=== PATIENT | female | born 1950 | race Caucasian/White ===

== ENCOUNTER 2017-01-25 13:37 | Inpatient (IN) | payer MEDICARE, OTHER ==
[2017-01-25] MEDS ORDERED: ACETAMINOPHEN 325 MG TABLET PO ONE (13:44)
--- NOTE | 2017-01-25 14:08 | ER Document Report ---
ED Respiratory Problem - General Chief Complaint: Shortness Of Breath Stated Complaint: DIFFICULTY BREATHING Time Seen by Provider: 01/25/17 14:05 Notes: The patient is a 66-year-old female, past medical history CHF, HTN, presents with several days of increasing shortness of breath and dyspnea on exertion with a fever that started 2 days ago. Her primary care physician started her on azithromycin and Tessalon Perles, but she feels that her work of breathing is worsening. She saw her primary care physician, Dr. Peña, and was sent to the emergency room for further evaluation, treatment and admission due to a pneumonia seen on a chest x-ray as an outpatient. Patient denies chest pain, leg swelling, hemoptysis, rash, back pain, nausea, vomiting or abdominal pain. TRAVEL OUTSIDE OF THE [place] IN LAST 30 DAYS: No - Related Data Allergies/Adverse Reactions: codeine Allergy (Verified 01/25/17 13:44) Past Medical History - General Information source: Patient - Social History Smoking Status: Former Smoker Family History: Reviewed & Not Pertinent Renal/ Medical History: Denies: Hx Peritoneal Dialysis Review of Systems - Review of Systems Notes: REVIEW OF SYSTEMS: CONSTITUTIONAL: +fevers, -chills EENT: -eye pain, -difficulty swallowing, -nasal congestion CARDIOVASCULAR:-chest pain, -syncope. RESPIRATORY: +cough, +SOB GASTROINTESTINAL: -abdominal pain, - nausea, -vomiting, -diarrhea GENITOURINARY: -dysuria, -hematuria MUSCULOSKELETAL: -back pain, -neck pain SKIN: -rash or skin lesions. HEMATOLOGIC: -easy bruising or bleeding. LYMPHATIC: -swollen, enlarged glands. NEUROLOGICAL: -altered mental status or loss of consciousness, -headache, - neurologic symptoms PSYCHIATRIC: -anxiety, -depression. ALL OTHER SYSTEMS REVIEWED AND NEGATIVE. Physical Exam - Vital signs Vitals: Temp Pulse Resp BP Pulse Ox 101.7 F H 89 24 H 132/55 H 92 01/25/17 13:42 01/25/17 13:42 01/25/17 13:42 01/25/17 13:42 01/25/17 13:42 - Notes Notes: PHYSICAL EXAMINATION: GENERAL: Ill-appearing. HEAD: Atraumatic, normocephalic. EYES: Pupils equal round and reactive to light, extraocular movements intact, sclera anicteric, conjunctiva are normal. ENT: nares patent, oropharynx clear without exudates. Moist mucous membranes. NECK: Normal range of motion, supple without lymphadenopathy LUNGS: Mild tachypnea. Crackles in RLL. Mild end-expiratory wheezing. HEART: Regular rhythm. ABDOMEN: Soft, nontender, normoactive bowel sounds. No guarding, no rebound. No masses appreciated. EXTREMITIES: Normal range of motion, no pitting or edema. No cyanosis. NEUROLOGICAL: Cranial nerves grossly intact. Normal speech, normal gait. Normal sensory and motor exams. PSYCH: Normal mood, normal affect. SKIN: Warm, Dry, normal turgor, no rashes or lesions noted. Course - Re-evaluation Re-evalutation: Patient with fevers, tachypnea, mild hypoxia to 88% on RA and crackles on exam, pt clinically has pneumonia. She failed outpatient antibiotics with azithromycin. She does not appear to be fluid overloaded at this time. Broad- spectrum antibiotics started and patient requires inpatient admission for further evaluation and treatment. 01/25/17 15:32 Spoke to Clarice Gutiérrez (Hospitalist [employer]) and she has accepted patient for Inpatient admission to [facility]. - Vital Signs Vital signs: Temp Pulse Resp BP Pulse Ox 101.7 F H 89 24 H 132/55 H 92 01/25/17 13:42 01/25/17 13:42 01/25/17 13:42 01/25/17 13:42 01/25/17 13:42 - Laboratory Result Diagrams: 01/25/17 14:23 01/25/17 14:23 Laboratory results interpreted by me: 01/25/17 01/25/17 14:23 14:23 WBC 12.5 H Seg Neutrophils % 78.4 H Lymphocytes % 8.4 L Absolute Neutrophils 9.8 H Absolute Monocytes 1.6 H Sodium 136.2 L Glucose 114 H Total Bilirubin 2.5 H Direct Bilirubin 0.9 H AST 39 H Alkaline Phosphatase 135 H Creatine Kinase 377 H - Diagnostic Test Radiology reviewed: Image reviewed, Reports reviewed Radiology results interpreted by me: CXR: NAD - EKG Interpretation by Me EKG shows normal: Sinus rhythm, [place], Intervals, QRS Complexes, ST-T Waves Rate: Normal Discharge - Discharge Clinical Impression: Pneumonia Qualifiers: Pneumonia type: due to unspecified organism Laterality: right Lung location: lower lobe of lung Qualified Code(s): J18.1 - Lobar pneumonia, unspecified organism Condition: Stable Disposition: ADMITTED INPATIENT Admitting Provider: [facility] Unit Admitted: Telemetry Referrals: LUCILA PEÑA MD [Primary Care Provider] - Follow up as needed
[2017-01-25] MEDS ORDERED: PIPERACILLIN/TAZOBACTAM 3.375 GM VIAL IV ONE (14:22)
[2017-01-25] MEDS ORDERED: VANCOMYCIN HCL INJ 1000 MG VIAL IV ONE (14:22)
--- NOTE | 2017-01-25 14:46 | RADIOLOGY REPORT (SQ) ---
EXAM DESCRIPTION: CHEST SINGLE VIEW COMPLETED DATE/TIME: 01/25/2017 2:37 pm REASON FOR STUDY: SOB, hypoxia COMPARISON: None. EXAM PARAMETERS: NUMBER OF VIEWS: One view. TECHNIQUE: Single frontal radiographic view of the chest acquired. RADIATION DOSE: NA LIMITATIONS: None. FINDINGS: LUNGS AND PLEURA: No opacities, masses or pneumothorax. No pleural effusion. MEDIASTINUM AND HILAR STRUCTURES: No masses. Contour normal. HEART AND VASCULAR STRUCTURES: Heart normal in size. Normal vasculature. BONES: No acute findings. HARDWARE: None in the chest. OTHER: No other significant finding. IMPRESSION: NO ACUTE RADIOGRAPHIC FINDING IN THE CHEST. TECHNICAL DOCUMENTATION: JOB ID: [id number]
[2017-01-25 14:55] LABS: ABSOLUTE LYMPHOCYTES (AUTO) 1.1 10^3/uL (0.5-4.7); ABSOLUTE MONOCYTES (AUTO) 1.6 10^3/uL (0.1-1.4); ABSOLUTE NEUT (AUTO) 9.8 10^3/uL (1.7-8.2); BASOPHILS % (AUTO) 0.3 % (0-2); EOSINOPHILS % (AUTO) 0.1 % (0-6); HEMATOCRIT 39.9 % (36.0-47.0); HEMOGLOBIN 13.7 g/dL (12.0-15.5); HGB HCT DIFFERENCE 1.2; LYMPHOCYTES % (AUTO) 8.4 % (13-45); MEAN CORPUSCULAR HEMOGLOBIN 31.4 pg (27.0-33.4); MEAN CORPUSCULAR HGB CONC 34.4 g/dL (32.0-36.0); MEAN CORPUSCULAR VOLUME 91 fl (80-97); MONOCYTES % (AUTO) 12.8 % (3-13); RED BLOOD COUNT 4.38 10^6/uL (3.72-5.28); RED CELL DISTRIBUTION WIDTH 13.4 % (11.5-14.0); SEGMENTED NEUTROPHILS % (AUTO) 78.4 % (42-78); WHITE BLOOD COUNT 12.5 10^3/uL (4.0-10.5)
[2017-01-25 15:19] LABS: ALANINE AMINOTRANSFERASE 52 U/L (9-52); ALBUMIN 3.7 g/dL (3.5-5.0); ALKALINE PHOSPHATASE 135 U/L (38-126); ANION GAP 13 (5-19); ASPARTATE AMINO TRANSFERASE 39 U/L (14-36); BILIRUBIN,DIRECT 0.9 mg/dL (0.0-0.4); BILIRUBIN,TOTAL 2.5 mg/dL (0.2-1.3); BLOOD UREA NITROGEN 12 mg/dL (7-20); CALCIUM 8.8 mg/dL (8.4-10.2); CARBON DIOXIDE 23 mmol/L (22-30); CHLORIDE 100 mmol/L (98-107); CREATINE KINASE 377 U/L (30-135); GLUCOSE 114 mg/dL (75-110); POTASSIUM 3.8 mmol/L (3.6-5.0); SODIUM 136.2 mmol/L (137-145); TOTAL PROTEIN 6.7 g/dL (6.3-8.2)
[2017-01-25] MEDS ORDERED: IPRATROPIUM/ALBUTEROL 0.5-2.5 MG/3 ML AMPUL NEB ONE ×2 (15:30→17:00)
[2017-01-25 15:31] LABS: TROPONIN I < 0.012 ng/mL
[2017-01-25 15:51] LABS: APPEARANCE,URINE SLIGHTLY-CLOUDY; BILIRUBIN,URINE NEGATIVE (NEGATIVE); GLUCOSE, URINE NEGATIVE (NEGATIVE); KETONES,URINE NEGATIVE (NEGATIVE); LEUKOCYTE ESTERASE,URINE LARGE (NEGATIVE); NITRITE,URINE NEGATIVE (NEGATIVE); PROTEIN,URINE 30 mg/dL (NEGATIVE); URINE SPECIFIC GRAVITY 1.023
[2017-01-25] MEDS ORDERED: ACETAMINOPHEN 325 MG TABLET PO PRN (16:11)
[2017-01-25 16:22] LABS: VENOUS BLOOD HCO3 25.7 mmol/L (20-32); VENOUS BLOOD PCO2 37.7 mmHg (35-63); VENOUS BLOOD PH 7.45 (7.30-7.42)
--- NOTE | 2017-01-25 16:35 | PDOC H&P ---
History of Present Illness Admission Date/PCP: 01/25/17 15:52 LUCILA PEÑA MD Patient complains of: Worsening shortness of breath History of Present Illness: DIONNE PICKETT is a 66 year old female with a past medical history consistent significant for hypothyroidism and mild hyperlipidemia. The patient recently had been traveling on a bus tour in [place]. She stated that everybody on the bus caught an upper respiratory illness. When she came back she saw her primary care provider who placed her on p.o. Zithromax. In spite of this she had worsening shortness of breath and worsening fever and presented to the emergency room for further evaluation and treatment. Today she states she just cannot catch her breath. She has had fever and shaking chills. She states that she has a very bad headache. She states her chest hurts from the frequent coughing and she is coughing up quite a bit of sputum. She reports that recently she has been having dyspnea on exertion and when she was trying to walk in [place] she would get quite short of breath and winded. She also has had worsening lower extremity swelling. She states that she has had no nausea vomiting or diarrhea. No change in bowel habits. No abdominal pain. No dysuria, frequency or hematuria. When I went to see the patient today she was having an episode of bronchospasm and her oxygen saturations in spite of being on 2 L was in the mid 80s. Once the patient was able to quit coughing her oxygen saturation stabilized to the low 90s. Past Medical History Cardiac Medical History: Reports: None Pulmonary Medical History: Reports: None Denies: Asthma, Chronic Obstructive Pulmonary Disease (COPD), Pneumonia EENT Medical History: Reports: None Neurological Medical History: Reports: None Endocrine Medical History: Reports: Hypothyroidism Denies: Diabetes Mellitus Type 2 Renal/ Medical History: Reports: None Denies: Chronic Kidney Disease Malignancy Medical History: Reports: None GI Medical History: Reports: None Denies: Gastroesophageal Reflux Disease Musculoskeltal Medical History: Reports: Arthritis Skin Medical History: Reports: None Psychiatric Medical History: Reports: None Traumatic Medical History: Reports: None Hematology: Reports: None Infectious Medical History: Reports: None Past Surgical History Past Surgical History: Reports: Section - x3, Cholecystectomy, Hysterectomy, Other - deviated septum, foot surgery, knee surgery Social History Information Source: Patient Lives with: Spouse/Significant other Smoking Status: Never Smoker Frequency of Alcohol Use: Rare Hx Recreational Drug Use: No Hx Prescription Drug Abuse: No - Advance Directive Surrogate healthcare decision maker:: Family History Family History: DM, Malignancy Parental Family History Reviewed: Yes Children Family History Reviewed: No Sibling(s) Family History Reviewed.: No Medication/Allergy Home Medications: Atorvastatin Calcium [Lipitor 10 mg Tablet] 10 mg PO QHS 01/25/17 Levothyroxine Sodium [Synthroid 0.088 mg Tablet] 0.088 mg PO DAILY 01/25/17 Allergies/Adverse Reactions: codeine Allergy (Verified 01/25/17 13:44) Review of Systems Constitutional: PRESENT: chills, fatigue, fever(s), headache(s) Eyes: ABSENT: visual disturbances Ears: ABSENT: hearing changes Nose, Mouth, and Throat: PRESENT: headache(s). ABSENT: mouth pain, sore throat Cardiovascular: PRESENT: dyspnea on exertion, edema. ABSENT: chest pain, palpitations Respiratory: PRESENT: cough, dyspnea, sputum Gastrointestinal: ABSENT: abdominal pain, constipation, diarrhea, dysphagia, heartburn, hematemesis, hematochezia, nausea, vomiting Integumentary: ABSENT: diaphoresis, pruritus, rash Neurological: PRESENT: weakness. ABSENT: abnormal speech, confusion, dizziness , frequent falls, lack of coordination, syncope Psychiatric: ABSENT: anxiety, depression, homidical ideation, suicidal ideation Endocrine: ABSENT: cold intolerance, flushing, heat intolerance, polyphagia, polyuria Hematologic/Lymphatic: ABSENT: easy bleeding, easy bruising Physical Exam Vital Signs: Temp Pulse Resp BP Pulse Ox 101.7 F H 89 24 H 132/55 H 92 01/25/17 13:42 01/25/17 13:42 01/25/17 13:42 01/25/17 13:42 01/25/17 13:42 General appearance: PRESENT: mild distress, morbidly obese, well-developed, well -nourished Head exam: PRESENT: atraumatic, normocephalic Eye exam: PRESENT: conjunctiva pink, EOMI, PERRLA. ABSENT: scleral icterus Ear exam: PRESENT: normal external ear exam Mouth exam: PRESENT: moist, tongue midline Throat exam: PRESENT: post pharyngeal erythema Neck exam: ABSENT: carotid bruit, JVD, lymphadenopathy, thyromegaly Respiratory exam: PRESENT: accessory muscle use, chest wall tenderness, crackles , rhonchi, tachypnea, wheezes Cardiovascular exam: PRESENT: RRR, +S1, +S2. ABSENT: diastolic murmur, gallop, rubs, systolic murmur Pulses: PRESENT: normal dorsalis pedis pul Vascular exam: PRESENT: normal capillary refill GI/Abdominal exam: PRESENT: normal bowel sounds, soft. ABSENT: distended, guarding, mass, organolmegaly, rebound, tenderness Rectal exam: PRESENT: deferred Extremities exam: PRESENT: +1 edema. ABSENT: calf tenderness, clubbing, tenderness Musculoskeletal exam: PRESENT: ambulatory Neurological exam: PRESENT: alert, altered, awake, oriented to person, oriented to place, oriented to time, oriented to situation, CN II-XII grossly intact Psychiatric exam: PRESENT: appropriate affect, normal mood. ABSENT: homicidal ideation, suicidal ideation Skin exam: PRESENT: dry, intact, warm. ABSENT: cyanosis, rash Results Impressions: Chest X-Ray 01/25/17 14:17 IMPRESSION: NO ACUTE RADIOGRAPHIC FINDING IN THE CHEST. Assessment & Plan - Diagnosis (1) Acute respiratory failure with hypoxia Plan: Secondary to probable pneumonia. I cannot rule out an element of vascular congestion as well. Patient will continue oxygen support as needed to titrate her oxygen saturations to be above 90%. She will continue aggressive breathing treatments and therapy as outlined below. I am also going to get the patient an incentive spirometer. (2) Sepsis Plan: Secondary to pneumonia manifested by very high fever, tachypnea, leukocytosis and evidence of infection. Treatment as outlined below. (3) Pneumonia Qualifiers: Pneumonia type: due to unspecified organism Laterality: right Lung location: lower lobe of lung Qualified Code(s): J18.1 - Lobar pneumonia, unspecified organism Plan: Concerns for community-acquired pathogen such as gram positives and atypicals. Patient will be started on IV Levaquin. This will be the first day of treatment. Sputum culture is pending and we will await final results to direct therapy. I will obtain a legionella urine antigen as the patient has recently been out of the country. Patient will be given an incentive spirometer and will receive aggressive breathing treatments. She also has some wheezing on exam and I will start the patient on some Solu-Medrol. (4) Hypothyroidism Plan: Continue home dose of Synthroid. (5) Hyperlipidemia Plan: She will be started on her home dose of Lipitor. (6) Hyponatremia Plan: This is quite mild. She will have a CBC drawn in the morning. (7) Elevated brain natriuretic peptide (BNP) level Plan: The patient states that she has been having increased dyspnea on exertion and swelling in her lower extremities. Her BNP is elevated. Will obtain a 2D echocardiogram for further evaluation. - Time Time Spent: 50 to 70 Minutes - Inpatient Certification Medical Necessity: Failure to Improve With Outpatient Therapy, Need Close Monitoring Due to Risk of Patient Decompensation, Need for IV Antibiotics - Inpatient hospitalization remains necessary. This patient has a septic picture with probable pneumonia and a high fever. She is requiring parenteral therapies. I expect her to spend greater than 2 midnights in the hospital.
--- NOTE | 2017-01-25 16:56 | RADIOLOGY REPORT (SQ) ---
EXAM DESCRIPTION: CT CHEST WITH COMPLETED DATE/TIME: 01/25/2017 4:43 pm REASON FOR STUDY: rule out pneumonia COMPARISON: None. TECHNIQUE: CT scan of the chest performed using helical scanning technique with dynamic intravenous contrast injection. Images reviewed with lung, soft tissue and bone windows. Reconstructed coronal and sagittal MPR images reviewed. All images stored on PACS. All CT scanners at this facility use dose modulation, iterative reconstruction, and/or weight based d osing when appropriate to reduce radiation dose to as low as reasonably achievable (ALARA). [facility]: Dose Right [facility]: CareDose [facility]: Dose Right [facility]: Teradose 4D [facility]: Vioozer CONTRAST TYPE AND DOSE: contrast/concentration: Isovue 370.00 mg/ml; Total Contrast Delivered: 80.0 ml; Total Saline Delivered: 55.0 ml RENAL FUNCTION: BUN 12 creatinine 0.9. RADIATION DOSE: Up-to-date CT equipment and radiation dose reduction techniques were employed. CTDIv ol: 16.8 mGy. DLP: 638 mGy-cm. . LIMITATIONS: None. FINDINGS: LUNGS AND PLEURA: No opacities, nodules, masses. No pneumothorax. No effusions. HILAR AND MEDIASTINAL STRUCTURES: No identified masses or abnormal nodes. HEART AND VASCULAR STRUCTURES: No aneurysm or dissection. No central pulmonary emboli. No pericardi al effusion. HARDWARE: None in the chest. UPPER ABDOMEN: No significant findings. Limited exam. THYROID AND OTHER SOFT TISSUES: No masses. No adenopathy. BONES: No significant finding. OTHER: No other significant finding. IMPRESSION: NORMAL CT OF THE CHEST WITH IV CONTRAST. TECHNICAL DOCUMENTATION: JOB ID: [id number] Quality ID # [id number]: Final reports with documentation of one or more dose reduction techniques (e.g., Au tomated exposure control, adjustment of the mA and/or kV according to patient size, use of iterative reconstruction technique) 2010 [employer]- All Rights Reserved
[2017-01-25] MEDS ORDERED: METHYLPREDNISOLONE INJ 40 MG/1 ML SDV IV ONE (17:00)
[2017-01-25] MEDS: LEVOFLOXACIN 750 MG/D5W RTU 750 MG/150 ML RTUPB IV SCH (17:58)
[2017-01-25] MEDS ORDERED: ONDANSETRON HCL INJ/PF 4 MG/2 ML SDV IV PRN (19:51)
[2017-01-25] MEDS: IPRATROPIUM/ALBUTEROL 0.5-2.5 MG/3 ML AMPUL NEB SCH (20:04)
[2017-01-25] MEDS ORDERED: ONDANSETRON HCL INJ/PF 4 MG/2 ML SDV ONE (20:06)
[2017-01-25] MEDS: GUAIFENESIN 600 MG TABLET.SA PO SCH (22:05)
[2017-01-25] MEDS: ATORVASTATIN CALCIUM 10 MG TABLET PO SCH (22:06)
[2017-01-25] MEDS: METHYLPREDNISOLONE INJ 40 MG/1 ML SDV IV SCH (22:07)
[2017-01-26] MEDS: IPRATROPIUM/ALBUTEROL 0.5-2.5 MG/3 ML AMPUL NEB SCH ×4 (02:08→20:28)
--- NOTE | 2017-01-26 03:57 | EKG REPORT ---
SEVERITY:- NORMAL ECG - SINUS RHYTHM : Confirmed by: Shayna De La Fuente MD 26-Jan-2017 03:56:48
[2017-01-26] MEDS: METHYLPREDNISOLONE INJ 40 MG/1 ML SDV IV SCH ×3 (06:00→21:30)
[2017-01-26 06:34] LABS: ANION GAP 14 (5-19); BLOOD UREA NITROGEN 13 mg/dL (7-20); CALCIUM 9.1 mg/dL (8.4-10.2); CARBON DIOXIDE 23 mmol/L (22-30); CHLORIDE 102 mmol/L (98-107); CREATININE RESULT 0.87 mg/dL (0.52-1.25); GLUCOSE 226 mg/dL (75-110); POTASSIUM 3.6 mmol/L (3.6-5.0)
[2017-01-26 06:47] LABS: HEMATOCRIT 39.8 % (36.0-47.0); HEMOGLOBIN 13.7 g/dL (12.0-15.5); HGB HCT DIFFERENCE 1.3; MEAN CORPUSCULAR VOLUME 92 fl (80-97); RED BLOOD COUNT 4.33 10^6/uL (3.72-5.28); WHITE BLOOD COUNT 10.9 10^3/uL (4.0-10.5)
[2017-01-26 06:48] LABS: MEAN CORPUSCULAR HEMOGLOBIN 31.7 pg (27.0-33.4); MEAN CORPUSCULAR HGB CONC 34.5 g/dL (32.0-36.0); RED CELL DISTRIBUTION WIDTH 13.6 % (11.5-14.0)
[2017-01-26 07:34] LABS: BAND NEUTROPHILS % (MANUAL) 1 % (3-5); BASOPHILS % (MANUAL) 0 % (0-2); EOSINOPHILS % (MANUAL) 0 % (0-6); LYMPHOCYTES % (MANUAL) 4 % (13-45); TOTAL CELLS COUNTED 100
[2017-01-26 07:36] LABS: POLYCHROMASIA SLIGHT; TOXIC GRANULATION 1+
[2017-01-26 08:11] LABS: ALANINE AMINOTRANSFERASE 51 U/L (9-52); ALBUMIN 3.6 g/dL (3.5-5.0); ALKALINE PHOSPHATASE 128 U/L (38-126); ASPARTATE AMINO TRANSFERASE 41 U/L (14-36); BILIRUBIN,DIRECT 0.6 mg/dL (0.0-0.4); BILIRUBIN,TOTAL 1.3 mg/dL (0.2-1.3); TOTAL PROTEIN 6.8 g/dL (6.3-8.2)
--- NOTE | 2017-01-26 09:21 | PDOC PROGRESS REPORT ---
Subjective Progress Note for:: 01/26/17 Subjective:: The patient is a 66-year-old female with an unremarkable past medical history significant for hypothyroidism and mild hyperlipidemia. The patient recently had been traveling on a bus to her in [place]. She stated that everybody on the bus caught some sort of upper respiratory illness and actually one patient was hospitalized. When she came back to the [facility] she saw her primary care physician who obtained a chest x-ray concerning for a right lower lobe pneumonia. He placed her on p.o. Zithromax. In spite of that she had worsening shortness of breath and worsening fever. She presented to the emergency room for further evaluation and treatment. In the emergency room she was found to be somewhat hypoxic and was having significant cough with bronchospasm. She had evidence of early sepsis with a markedly high fever, tachypnea, leukocytosis and probable pneumonia. She also had a mildly elevated BNP. A chest x-ray in the emergency room was unremarkable. She was admitted to the hospital and started on IV Levaquin. Today when I saw the patient she states that she is feeling a little bit better than she was yesterday. She still bringing up quite a bit of sputum. She continues to have cough with bronchospasm and wheezing. She had a CT scan of the chest which did not reveal an infiltrate. She is scheduled to have an echocardiogram performed today. On exam yesterday she clearly had crackles in the right lower base. She states she has purulent sinus drainage as well. She states that her chest is hurting from the frequent coughing and it hurts to take a deep breath. She has had no nausea or vomiting. She has not had a bowel movement yet today. No abdominal pain. No dysuria, frequency or hematuria. Physical Exam Vital Signs: Temp Pulse Resp BP Pulse Ox 98.5 F 73 16 126/76 H 93 01/26/17 08:42 01/26/17 08:42 01/26/17 08:42 01/26/17 08:42 01/26/17 08:42 Pulse Oximeter Continuous Start: 01/25/17 16: 11 Freq: RTQ4 Status: Active Document 01/26/17 08:04 JOY (Rec: 01/26/17 08:06 [email or web address] [email or web address]) Pulse Oximetry Assessment Oxygen Saturation (92-100) 94 Oxygen Flow Rate (L/min) 2 Oxygen Delivery Method Nasal Cannula Equipment Usage Equipment in Use Continuous SpO2 Machine # 8 Intake & Output 01/25/17 01/26/17 01/27/17 06:59 06:59 06:59 Intake Total 530 Balance 530 Weight 113.8 kg General appearance: PRESENT: no acute distress, well-developed, well-nourished, other - She has frequent cough with bronchospasm Head exam: PRESENT: atraumatic, normocephalic Eye exam: PRESENT: conjunctiva pink, EOMI, PERRLA. ABSENT: scleral icterus Mouth exam: PRESENT: moist, tongue midline Respiratory exam: PRESENT: chest wall tenderness, rhonchi - The patient has coarse rhonchi and wheezing throughout all lung rodriguez. She does have some fine crackles in the right lower base., wheezes Cardiovascular exam: PRESENT: RRR. ABSENT: diastolic murmur, rubs, systolic murmur GI/Abdominal exam: PRESENT: normal bowel sounds, soft, tenderness - She has some tenderness across her upper abdomen which she attributes to frequent coughing.. ABSENT: distended, guarding, mass, organolmegaly, rebound Rectal exam: PRESENT: deferred Extremities exam: PRESENT: full ROM. ABSENT: calf tenderness, clubbing, pedal edema Musculoskeletal exam: PRESENT: ambulatory Psychiatric exam: PRESENT: appropriate affect, normal mood. ABSENT: homicidal ideation, suicidal ideation Skin exam: PRESENT: dry, intact, warm. ABSENT: cyanosis, rash Results Laboratory Results: 01/26/17 05:06 01/26/17 05:06 01/26/17 01/26/17 01/26/17 05:06 05:06 05:06 WBC 10.9 H RBC 4.33 Hgb 13.7 Hct 39.8 MCV 92 MCH 31.7 MCHC 34.5 RDW 13.6 Plt Count 203 Seg Neutrophils % Not Reportable Lymphocytes % Not Reportable Monocytes % Not Reportable Eosinophils % Not Reportable Basophils % Not Reportable Absolute Neutrophils Not Reportable Absolute Lymphocytes Not Reportable Absolute Monocytes Not Reportable Absolute Eosinophils Not Reportable Absolute Basophils Not Reportable Sodium 139.0 Potassium 3.6 Chloride 102 Carbon Dioxide 23 Anion Gap 14 BUN 13 Creatinine 0.87 Est GFR ( Amer) > 60 Est GFR (Non-Af Amer) > 60 Glucose 226 H Calcium 9.1 Total Bilirubin 1.3 AST 41 H ALT 51 Alkaline Phosphatase 128 H Total Protein 6.8 Albumin 3.6 01/26/17 05:06 NT-Pro-B Natriuret Pep 305 Impressions: Chest CT 01/25/17 00:00 IMPRESSION: NORMAL CT OF THE CHEST WITH IV CONTRAST. Chest X-Ray 01/25/17 14:17 IMPRESSION: NO ACUTE RADIOGRAPHIC FINDING IN THE CHEST. Assessment & Plan - Diagnosis (1) Acute respiratory failure with hypoxia Plan: Secondary to probable pneumonia. I cannot rule out an element of vascular congestion as well. Patient will continue oxygen support as needed to titrate her oxygen saturations to be above 90%. She will continue aggressive breathing treatments and therapy as outlined below. I am also going to get the patient an incentive spirometer. Currently her oxygen saturations are stable in the low 90s on 2 L. (2) Sepsis Plan: Secondary to pneumonia manifested by very high fever, tachypnea, leukocytosis and evidence of infection. Her sepsis was present at the time of admission. Her fever has resolved at this point and her leukocytosis is improving. Treatment as outlined below. (3) Pneumonia Qualifiers: Pneumonia type: due to unspecified organism Laterality: right Lung location: lower lobe of lung Qualified Code(s): J18.1 - Lobar pneumonia, unspecified organism Plan: Concerns for community-acquired pathogen such as gram positives and atypicals. The patient reportedly had a chest x-ray as an outpatient several days prior to admission revealing a right lower lobe infiltrate. Clinically on exam she had crackles in the right lower base yesterday. Chest x-ray and CT scan do not confirm a pneumonia. In any event she will continue IV Levaquin. This is day # 2 of treatment. Patient also is having wheezing and bronchospasm. She will continue IV Solu-Medrol as well. (4) Hypothyroidism Plan: Continue home dose of Synthroid. (5) Hyperlipidemia Plan: She will be started on her home dose of Lipitor. (6) Hyponatremia Plan: This was quite mild and likely due to dehydration. Her sodium level has now normalized. (7) Elevated brain natriuretic peptide (BNP) level Plan: The patient states that she has been having increased dyspnea on exertion and swelling in her lower extremities. Her BNP is elevated. She is scheduled to have a 2D echocardiogram performed today. (8) Elevated liver function tests Plan: Improving. This was likely secondary to sepsis. - Time Time Spent with patient: 15-24 minutes - Inpatient Certification Medical Necessity: Failure to Improve With Outpatient Therapy - Inpatient hospitalization remains necessary. The patient has acute respiratory failure requiring oxygen. She was not oxygen dependent prior to this hospitalization. She needs to be weaned off of oxygen and needs further treatment with parenteral therapies., Need for IV Antibiotics
[2017-01-26] MEDS: LEVOTHYROXINE SODIUM 0.088 MG TABLET PO SCH (09:38)
[2017-01-26] MEDS: GUAIFENESIN 600 MG TABLET.SA PO SCH ×2 (09:38→21:30)
[2017-01-26] MEDS: ENOXAPARIN SODIUM INJ 40 MG/0.4 ML DISP.SYRIN SUBCUT SCH (09:38)
[2017-01-26] MEDS: LEVOFLOXACIN 750 MG/D5W RTU 750 MG/150 ML RTUPB IV SCH (17:53)
--- NOTE | 2017-01-26 19:16 | XCELERA REPORT ---
[address] [address] Transthoracic Echocardiogram Report Name: DIONNE PICKETT Age: 66 yrs Gender: Female : 1950 Patient Status: Inpatient Patient Location: [address] [place] [address] Study Date: 01/26/2017 03:27 PM Height: 64 in Weight: 250 lb BSA: 2.2 m2 Procedure: A complete two-dimensional transthoracic echocardiogram was performed (2D, M-mode, spectral and color flow Doppler). The study was technically difficult with many images being suboptimal in quality. Reason For Study: elevated bnp, hypoxia, r/o chf Ordering Physician: DEN SOSA Performed By: Cullen Menon Interpretation Summary The study was technically difficult with many images being suboptimal in quality. The left ventricular ejection fraction is within normal limits. Doppler measurements suggest pseudonormalized left ventricular relaxation, which is associated with grade II/IV or mild to moderate diastolic dysfunction There is mild concentric left ventricular hypertrophy. The left ventricle is grossly normal size. Wall motion cannot be accurately commented on, but no definite regional wall motion abnormalities noted. The right ventricular systolic function is normal. The right atrium is normal in size The left atrial size is normal. There is a mild amount of mitral regurgitation There is no mitral valve stenosis. There is no aortic valve stenosis There is a trace amount of aortic regurgitation There is a trace to mild amount of tricuspid regurgitation There is mild pulmonary hypertension by echo Right ventricular systolic pressure is estimated to be elevated at 30- 40mmHg. The aortic root is not well visualized but is probably normal size. The inferior vena cava appeared normal and decreased > 50% with respiration (RAP 5-10 mmHg) There is no pericardial effusion. MMode/2D Measurements & Calculations RVDd: 2.4 cm LVIDd: 4.9 cm FS: 37.6 % Ao root diam: 3.1 cm IVSd: 1.1 cm LVIDs: 3.0 cm EDV(Teich): 111.0 ml LVPWd: 1.1 cm ESV(Teich): 36.1 ml Ao root area: 7.5 cm2 EF(Teich): 67.5 % Doppler Measurements & Calculations MV E max yuridia: MV dec slope: Ao V2 max: LV V1 max P.8 cm/sec 177.9 cm/sec 6.0 mmHg MV A max yuridia: 331.2 cm/sec2 Ao max PG: LV V1 max: 87.0 cm/sec MV dec time: 12.7 mmHg 122.5 cm/sec MV E/A: 0.74 0.20 sec PA V2 max: TR max yuridia: RAP systole: 119.7 cm/sec 264.6 cm/sec 5.0 mmHg PA max PG: TR max P.0 mmHg 5.7 mmHg RVSP(TR): 33.0 mmHg Left Ventricle The left ventricle is grossly normal size. There is mild concentric left ventricular hypertrophy. The left ventricular ejection fraction is within normal limits. Doppler measurements suggest pseudonormalized left ventricular relaxation, which is associated with grade II/IV or mild to moderate diastolic dysfunction. Wall motion cannot be accurately commented on, but no definite regional wall motion abnormalities noted. Right Ventricle The right ventricle is grossly normal size. There is normal right ventricular wall thickness. The right ventricular systolic function is normal. Atria The right atrium is normal in size. The left atrial size is normal. Interarterial septum not well visualized and not well dopplered. Cannot comment on ASD/PFO presence. Mitral Valve The mitral valve is grossly normal. There is no mitral valve stenosis. There is a mild amount of mitral regurgitation. Aortic Valve The aortic valve is grossly normal. There is no aortic valve stenosis. There is a trace amount of aortic regurgitation. Tricuspid Valve The tricuspid valve is not well visualized, but is grossly normal. There is no tricuspid stenosis. There is a trace to mild amount of tricuspid regurgitation. There is mild pulmonary hypertension by echo. Right ventricular systolic pressure is estimated to be elevated at 30-40mmHg. Pulmonic Valve The pulmonic valve is not well visualized. Great Vessels The aortic root is not well visualized but is probably normal size. The inferior vena cava appeared normal and decreased > 50% with respiration (RAP 5-10 mmHg). Effusions There is no pericardial effusion. : DEN SOSA > Reggie Valdivia
[2017-01-26] MEDS: ATORVASTATIN CALCIUM 10 MG TABLET PO SCH (21:30)
[2017-01-27] MEDS: IPRATROPIUM/ALBUTEROL 0.5-2.5 MG/3 ML AMPUL NEB SCH ×4 (02:00→19:44)
[2017-01-27] MEDS: METHYLPREDNISOLONE INJ 40 MG/1 ML SDV IV SCH (05:18)
[2017-01-27 05:38] LABS: HEMATOCRIT 39.7 % (36.0-47.0); HEMOGLOBIN 13.6 g/dL (12.0-15.5); HGB HCT DIFFERENCE 1.1; MEAN CORPUSCULAR HEMOGLOBIN 31.2 pg (27.0-33.4); MEAN CORPUSCULAR HGB CONC 34.3 g/dL (32.0-36.0); MEAN CORPUSCULAR VOLUME 91 fl (80-97); RED BLOOD COUNT 4.35 10^6/uL (3.72-5.28); RED CELL DISTRIBUTION WIDTH 13.6 % (11.5-14.0); WHITE BLOOD COUNT 17.1 10^3/uL (4.0-10.5)
[2017-01-27 05:59] LABS: ALANINE AMINOTRANSFERASE 66 U/L (9-52); ALBUMIN 3.8 g/dL (3.5-5.0); ALKALINE PHOSPHATASE 134 U/L (38-126); ANION GAP 12 (5-19); ASPARTATE AMINO TRANSFERASE 62 U/L (14-36); BILIRUBIN,DIRECT 0.5 mg/dL (0.0-0.4); BILIRUBIN,TOTAL 0.7 mg/dL (0.2-1.3); BLOOD UREA NITROGEN 26 mg/dL (7-20); CALCIUM 9.5 mg/dL (8.4-10.2); CARBON DIOXIDE 27 mmol/L (22-30); CHLORIDE 102 mmol/L (98-107); CREATININE RESULT 1.03 mg/dL (0.52-1.25); GLUCOSE 216 mg/dL (75-110); MAGNESIUM 2.2 mg/dL (1.6-2.3); POTASSIUM 3.4 mmol/L (3.6-5.0); SODIUM 140.6 mmol/L (137-145); TOTAL PROTEIN 7.3 g/dL (6.3-8.2)
[2017-01-27 06:16] LABS: BAND NEUTROPHILS % (MANUAL) 1 % (3-5); BASOPHILS % (MANUAL) 0 % (0-2); EOSINOPHILS % (MANUAL) 0 % (0-6); LYMPHOCYTES % (MANUAL) 1 % (13-45); TOTAL CELLS COUNTED 100
[2017-01-27 06:19] LABS: TOXIC GRANULATION SLIGHT
[2017-01-27 06:20] LABS: POIKILOCYTOSIS SLIGHT; POLYCHROMASIA SLIGHT; TEAR DROP CELLS SLIGHT; TOXIC VACUOLATION PRESENT
[2017-01-27 06:21] LABS: TARGET CELLS SLIGHT
[2017-01-27] MEDS: LEVOTHYROXINE SODIUM 0.088 MG TABLET PO SCH (07:23)
[2017-01-27] MEDS ORDERED: GUAIFENESIN/CODEINE PHOS 100-10 MG/ 5 ML UDC PO PRN (09:02)
[2017-01-27] MEDS: TRAMADOL HCL 50 MG TABLET PO PRN ×2 (09:32→20:06)
[2017-01-27] MEDS: ENOXAPARIN SODIUM INJ 40 MG/0.4 ML DISP.SYRIN SUBCUT SCH (09:33)
[2017-01-27] MEDS: GUAIFENESIN 600 MG TABLET.SA PO SCH ×2 (09:33→21:45)
[2017-01-27] MEDS: LEVOFLOXACIN 750 MG TABLET PO SCH (09:43)
[2017-01-27] MEDS ORDERED: POTASSIUM CHLORIDE 10 MEQ TABLET.SA PO ONE (10:00)
[2017-01-27] MEDS ORDERED: PREDNISONE 20 MG TABLET PO SCH (10:00)
[2017-01-27] MEDS: BENZONATATE 100 MG CAPSULE PO SCH ×2 (13:29→21:45)
--- NOTE | 2017-01-27 15:01 | PDOC PROGRESS REPORT ---
Subjective Progress Note for:: 01/27/17 Subjective:: Patient seen on morning rounds. She is resting in bed. She is complaining of bilateral lower abdominal pain secondary to coughing. She is also complaining of fatigue secondary to not sleeping. She states whenever she takes steroids she has insomnia. She also complains of frequent nonproductive coughing. She feels the nebulizer treatments are making her cough worse. We discussed the rationale for continuing breathing treatments. Cough remains mostly nonproductive. She denies any arthralgias or myalgias. Remaining review of systems are negative. Physical Exam Vital Signs: Temp Pulse Resp BP Pulse Ox 98.0 F 81 19 120/58 L 96 01/27/17 12:00 01/27/17 14:00 01/27/17 13:56 01/27/17 12:00 01/27/17 14:09 Pulse Oximeter Continuous Start: 01/25/17 16: 11 Freq: RTQ4 Status: Active Document 01/27/17 11:29 CMI (Rec: 01/27/17 11:34 CMI [email or web address]) Pulse Oximetry Assessment Oxygen Saturation (92-100) 92 Oxygen Flow Rate (L/min) 2 Oxygen Delivery Method Nasal Cannula Equipment Usage Equipment Standby Continuous SpO2 Machine # 8 Additional RT Notes Other pt forgot to put O2 back on after using the rest room, I placed pt back on O2 2lpm NC saat 92% Intake & Output 01/26/17 01/27/17 01/28/17 06:59 06:59 06:59 Intake Total 530 1710 Output Total 300 Balance 530 1410 Weight 113.8 kg 158 kg General appearance: PRESENT: no acute distress, morbidly obese, well-developed, well-nourished Head exam: PRESENT: atraumatic, normocephalic Eye exam: PRESENT: conjunctiva pink, EOMI, PERRLA. ABSENT: scleral icterus Ear exam: PRESENT: normal external ear exam Mouth exam: PRESENT: moist, tongue midline Neck exam: ABSENT: carotid bruit, JVD, lymphadenopathy, thyromegaly Respiratory exam: PRESENT: clear to auscultation dawson. ABSENT: rales, rhonchi, wheezes Cardiovascular exam: PRESENT: RRR. ABSENT: diastolic murmur, rubs, systolic murmur Pulses: PRESENT: normal carotid pulses, normal radial pulses Vascular exam: PRESENT: normal capillary refill GI/Abdominal exam: PRESENT: normal bowel sounds, soft, tenderness - bilateral lower quadrants. ABSENT: distended, guarding, mass, organolmegaly, rebound Rectal exam: PRESENT: deferred Extremities exam: PRESENT: full ROM. ABSENT: calf tenderness, clubbing, pedal edema Neurological exam: PRESENT: alert, awake, oriented to person, oriented to place , oriented to time, oriented to situation, CN II-XII grossly intact. ABSENT: motor sensory deficit Psychiatric exam: PRESENT: appropriate affect, normal mood. ABSENT: homicidal ideation, suicidal ideation Skin exam: PRESENT: dry, intact, warm. ABSENT: cyanosis, rash Results Laboratory Results: 01/27/17 04:49 01/27/17 04:49 01/27/17 01/27/17 04:49 04:49 WBC 17.1 H RBC 4.35 Hgb 13.6 Hct 39.7 MCV 91 MCH 31.2 MCHC 34.3 RDW 13.6 Plt Count 242 Seg Neutrophils % Not Reportable Lymphocytes % Not Reportable Monocytes % Not Reportable Eosinophils % Not Reportable Basophils % Not Reportable Absolute Neutrophils Not Reportable Absolute Lymphocytes Not Reportable Absolute Monocytes Not Reportable Absolute Eosinophils Not Reportable Absolute Basophils Not Reportable Sodium 140.6 Potassium 3.4 L Chloride 102 Carbon Dioxide 27 Anion Gap 12 BUN 26 H Creatinine 1.03 Est GFR ( Amer) > 60 Est GFR (Non-Af Amer) 53 L Glucose 216 H Calcium 9.5 Magnesium 2.2 Total Bilirubin 0.7 AST 62 H ALT 66 H Alkaline Phosphatase 134 H Total Protein 7.3 Albumin 3.8 01/26/17 05:06 NT-Pro-B Natriuret Pep 305 Impressions: Chest CT 01/25/17 00:00 IMPRESSION: NORMAL CT OF THE CHEST WITH IV CONTRAST. Chest X-Ray 01/25/17 14:17 IMPRESSION: NO ACUTE RADIOGRAPHIC FINDING IN THE CHEST. Assessment & Plan - Diagnosis (1) Acute respiratory failure with hypoxia Is this a current diagnosis for this admission?: Yes Plan: Secondary to acute bronchitis and bronchospasms. She is now saturating well on room air. Will decrease steroids to oral and lower dose. Will trial Tessalon Perles. Convert IV antibiotics to oral preparation for discharge home. CT scan of the chest and chest x-ray showed no pneumonia. (2) Elevated brain natriuretic peptide (BNP) level Is this a current diagnosis for this admission?: Yes Plan: TTE shows grade 2/4 diastolic dysfunction. With normal systolic function. Mild mitral regurgitation. (3) Hyperlipidemia Qualifiers: Hyperlipidemia type: mixed hyperlipidemia Qualified Code(s): E78.2 - Mixed hyperlipidemia Is this a current diagnosis for this admission?: Yes Plan: Continue statin (4) Hyponatremia Is this a current diagnosis for this admission?: Yes Plan: REsolved (5) Hypothyroidism Qualifiers: Hypothyroidism type: acquired Qualified Code(s): E03.9 - Hypothyroidism, unspecified Is this a current diagnosis for this admission?: Yes Plan: Continue thyroid replacement - Time Time Spent with patient: 25-34 minutes Critical Time spent with patient: 15-24 minutes Medications reviewed and adjusted accordingly: Yes Anticipated discharge: Home with Homehealth Within: within 48 hours
[2017-01-27] MEDS: ATORVASTATIN CALCIUM 10 MG TABLET PO SCH (21:45)
[2017-01-28] MEDS: IPRATROPIUM/ALBUTEROL 0.5-2.5 MG/3 ML AMPUL NEB SCH ×4 (01:49→20:08)
[2017-01-28] MEDS: BENZONATATE 100 MG CAPSULE PO SCH ×3 (05:45→21:36)
[2017-01-28] MEDS: LEVOTHYROXINE SODIUM 0.088 MG TABLET PO SCH (10:24)
[2017-01-28] MEDS: CETIRIZINE 10 MG TABLET PO SCH (10:24)
[2017-01-28] MEDS: LEVOFLOXACIN 750 MG TABLET PO SCH (10:24)
[2017-01-28] MEDS: GUAIFENESIN 600 MG TABLET.SA PO SCH ×2 (10:25→21:36)
[2017-01-28] MEDS: BUDESONIDE/FORMOTEROL 80-4.5 MCG 60 PUFF/6.9 GM MDI IH SCH ×2 (10:26→21:36)
[2017-01-28] MEDS: ENOXAPARIN SODIUM INJ 40 MG/0.4 ML DISP.SYRIN SUBCUT SCH (10:27)
[2017-01-28] MEDS: IPRATROPIUM BROMIDE 0.06% NASAL SPRAY 15 ML NASL SCH ×3 (10:28→18:46)
[2017-01-28] MEDS: PREDNISONE 20 MG TABLET PO SCH (10:28)
[2017-01-28 11:39] LABS: HEMATOCRIT 41.4 % (36.0-47.0); HEMOGLOBIN 14.2 g/dL (12.0-15.5); HGB HCT DIFFERENCE 1.2; MEAN CORPUSCULAR HEMOGLOBIN 31.5 pg (27.0-33.4); MEAN CORPUSCULAR HGB CONC 34.2 g/dL (32.0-36.0); MEAN CORPUSCULAR VOLUME 92 fl (80-97); RED BLOOD COUNT 4.49 10^6/uL (3.72-5.28); RED CELL DISTRIBUTION WIDTH 13.7 % (11.5-14.0); WHITE BLOOD COUNT 16.4 10^3/uL (4.0-10.5)
[2017-01-28 11:56] LABS: BASOPHILS % (MANUAL) 0 % (0-2); EOSINOPHILS % (MANUAL) 0 % (0-6); LYMPHOCYTES % (MANUAL) 11 % (13-45); TOTAL CELLS COUNTED 100
[2017-01-28 11:57] LABS: HYPOCHROMASIA SLIGHT; TOXIC GRANULATION SLIGHT
--- NOTE | 2017-01-28 13:21 | PDOC PROGRESS REPORT ---
Subjective Progress Note for:: 01/28/17 Subjective:: Patient seen on morning rounds. She is resting in bed. She states she slept better last night. Her cough was much better until she fell asleep. She reports upon awakening she had worsening sinus congestion and nonproductive cough. She feels the nebulizer treatments are making her cough worse. We discussed the rationale for continuing breathing treatments. Cough remains mostly nonproductive. She denies any arthralgias or myalgias. Remaining review of systems are negative. Physical Exam Vital Signs: Temp Pulse Resp BP Pulse Ox 98.6 F 75 18 111/49 L 75 L 01/28/17 12:00 01/28/17 12:00 01/28/17 12:00 01/28/17 12:00 01/28/17 12:00 Pulse Oximeter Continuous Start: 01/25/17 16: 11 Freq: RTQ4 Status: Active Document 01/28/17 08:00 J (Rec: 01/28/17 08:21 JDR [email or web address]) Pulse Oximetry Assessment Oxygen Saturation (92-100) 97 Oxygen Flow Rate (L/min) 2 Oxygen Delivery Method Nasal Cannula Fraction of Inspired Oxygen (FIO2) 28 Equipment Usage Equipment Standby Continuous SpO2 Machine # 8 Intake & Output 01/27/17 01/28/17 01/29/17 06:59 06:59 06:59 Intake Total 1710 1033 Output Total 300 Balance 1410 1033 Weight 158 kg 116.5 kg General appearance: PRESENT: no acute distress, morbidly obese, well-developed, well-nourished Head exam: PRESENT: atraumatic, normocephalic Eye exam: PRESENT: conjunctiva pink, EOMI, PERRLA. ABSENT: scleral icterus Ear exam: PRESENT: normal external ear exam Mouth exam: PRESENT: moist, tongue midline Neck exam: ABSENT: carotid bruit, JVD, lymphadenopathy, thyromegaly Respiratory exam: PRESENT: rhonchi, symmetrical, wheezes - expiratory wheezing bilaterally Cardiovascular exam: PRESENT: RRR. ABSENT: diastolic murmur, rubs, systolic murmur Pulses: PRESENT: normal dorsalis pedis pul Vascular exam: PRESENT: normal capillary refill GI/Abdominal exam: PRESENT: normal bowel sounds, soft. ABSENT: distended, guarding, mass, organolmegaly, rebound, tenderness Rectal exam: PRESENT: deferred Extremities exam: PRESENT: full ROM. ABSENT: calf tenderness, clubbing, pedal edema Neurological exam: PRESENT: alert, awake, oriented to person, oriented to place , oriented to time, oriented to situation, CN II-XII grossly intact. ABSENT: motor sensory deficit Psychiatric exam: PRESENT: appropriate affect, normal mood. ABSENT: homicidal ideation, suicidal ideation Skin exam: PRESENT: dry, intact, warm. ABSENT: cyanosis, rash Results Laboratory Results: 01/28/17 10:57 01/27/17 04:49 01/28/17 10:57 WBC 16.4 H RBC 4.49 Hgb 14.2 Hct 41.4 MCV 92 MCH 31.5 MCHC 34.2 RDW 13.7 Plt Count 287 Seg Neutrophils % Not Reportable Lymphocytes % Not Reportable Monocytes % Not Reportable Eosinophils % Not Reportable Basophils % Not Reportable Absolute Neutrophils Not Reportable Absolute Lymphocytes Not Reportable Absolute Monocytes Not Reportable Absolute Eosinophils Not Reportable Absolute Basophils Not Reportable 01/26/17 05:06 NT-Pro-B Natriuret Pep 305 Impressions: Chest CT 01/25/17 00:00 IMPRESSION: NORMAL CT OF THE CHEST WITH IV CONTRAST. Chest X-Ray 01/25/17 14:17 IMPRESSION: NO ACUTE RADIOGRAPHIC FINDING IN THE CHEST. Assessment & Plan - Diagnosis (1) Acute respiratory failure with hypoxia Is this a current diagnosis for this admission?: Yes Plan: Secondary to acute bronchitis and bronchospasms. We are attempting to wean oxygen. Will decrease steroids to oral and lower dose. Will trial Tessalon Perles. Convert IV antibiotics to oral preparation for discharge home. CT scan of the chest and chest x-ray showed no pneumonia. (2) Elevated brain natriuretic peptide (BNP) level Is this a current diagnosis for this admission?: Yes Plan: TTE shows grade 2/4 diastolic dysfunction. With normal systolic function. Mild mitral regurgitation. (3) Hyperlipidemia Qualifiers: Hyperlipidemia type: mixed hyperlipidemia Qualified Code(s): E78.2 - Mixed hyperlipidemia Is this a current diagnosis for this admission?: Yes Plan: Continue statin (4) Hyponatremia Is this a current diagnosis for this admission?: Yes Plan: REsolved (5) Hypothyroidism Qualifiers: Hypothyroidism type: acquired Qualified Code(s): E03.9 - Hypothyroidism, unspecified Is this a current diagnosis for this admission?: Yes Plan: Continue thyroid replacement - Time Time Spent with patient: 25-34 minutes Critical Time spent with patient: 15-24 minutes Medications reviewed and adjusted accordingly: Yes Anticipated discharge: Home Within: within 24 hours
[2017-01-28] MEDS ORDERED: INFLUENZA ADLT QUAD (36MOS+) 2017-18 VAC 0.5 ML SYR IM PRN (16:25)
[2017-01-28] MEDS: MONTELUKAST SODIUM 10 MG TABLET PO SCH (21:36)
[2017-01-28] MEDS: ATORVASTATIN CALCIUM 10 MG TABLET PO SCH (21:36)
[2017-01-29] MEDS: IPRATROPIUM/ALBUTEROL 0.5-2.5 MG/3 ML AMPUL NEB SCH ×4 (01:57→19:47)
[2017-01-29] MEDS: BENZONATATE 100 MG CAPSULE PO SCH ×3 (05:12→22:58)
[2017-01-29 05:50] LABS: ANION GAP 8 (5-19); BLOOD UREA NITROGEN 22 mg/dL (7-20); CALCIUM 8.7 mg/dL (8.4-10.2); CARBON DIOXIDE 29 mmol/L (22-30); CHLORIDE 103 mmol/L (98-107); CREATININE RESULT 0.91 mg/dL (0.52-1.25); GLUCOSE 100 mg/dL (75-110); POTASSIUM 4.2 mmol/L (3.6-5.0)
[2017-01-29] MEDS: LEVOTHYROXINE SODIUM 0.088 MG TABLET PO SCH (07:49)
[2017-01-29] MEDS: TRAMADOL HCL 50 MG TABLET PO PRN (07:50)
[2017-01-29] MEDS: LEVOFLOXACIN 750 MG TABLET PO SCH (10:52)
[2017-01-29] MEDS: CETIRIZINE 10 MG TABLET PO SCH (10:53)
[2017-01-29] MEDS: GUAIFENESIN 600 MG TABLET.SA PO SCH ×2 (10:53→22:58)
[2017-01-29] MEDS: PREDNISONE 20 MG TABLET PO SCH (10:53)
[2017-01-29] MEDS: IPRATROPIUM BROMIDE 0.06% NASAL SPRAY 15 ML NASL SCH ×3 (10:54→19:31)
[2017-01-29] MEDS: ENOXAPARIN SODIUM INJ 40 MG/0.4 ML DISP.SYRIN SUBCUT SCH (10:54)
[2017-01-29] MEDS: BUDESONIDE/FORMOTEROL 80-4.5 MCG 60 PUFF/6.9 GM MDI IH SCH ×2 (10:55→22:58)
--- NOTE | 2017-01-29 14:19 | PDOC PROGRESS REPORT ---
Subjective Progress Note for:: 01/29/17 Subjective:: The patient is a 66-year-old female who presents with acute bronchitis and likely acute pneumonitis. Apparently, the patient was on a recent trip to [place]. Many other travelers became ill with bronchitis. Many travelers had to be hospitalized. The patient was unable to tell me if there was any acute infection that was determined to cause the illness. She does not recall being exposed to anything other than other ill Travelers. In any event the patient has an acute cough and shortness of breath. Her cough remains dry. She has not coughed up any blood but she did have some crusting lesions in her nose likely from oxygen. She is feeling slightly better today. I did take off her oxygen and she immediately dropped her sats to 81% on room air. Therefore, I have placed the patient back on IV corticosteroids for at least another 24 hours. Unfortunately, she does not appear to be ready for discharge at this time. Physical Exam Vital Signs: Temp Pulse Resp BP Pulse Ox 98.9 F 86 20 110/67 95 01/29/17 12:00 01/29/17 12:00 01/29/17 12:00 01/29/17 12:00 01/29/17 12:00 Pulse Oximeter Continuous Start: 01/25/17 16: 11 Freq: RTQ4 Status: Active Document 01/29/17 11:55 LDA (Rec: 01/29/17 11:55 LDA [email or web address]) Pulse Oximetry Assessment Equipment Usage Equipment Standby Continuous SpO2 Machine # 8 Intake & Output 01/28/17 01/29/17 01/30/17 06:59 06:59 06:59 Intake Total 1033 560 Output Total 2 Balance 1033 558 Weight 116.5 kg 116.8 kg Additional comments: The patient is a delightful morbidly obese white female. Her cognition and mentation are completely appropriate. Her facial appearance is normal. I do not detect any bleeding in the nares. Her mucous membranes are slightly dry. Her neck is supple. She does not have any JVD. The patient's lungs demonstrate very subtle and expiratory wheezing. Wheezing is laterally with forced expiration. Wheezing is noted diffusely in all lung rodriguez both anteriorly and posteriorly. Her cardiac exam is regular without murmurs, gallops or rubs. The abdomen is obese but soft. Bowel sounds are present. She does not have any guarding or rebound noted and there are no hernias or masses present. The lower extremities are warm to touch. No pitting edema is present. The skin is warm dry and intact without lesions or rashes. Results Laboratory Results: 01/28/17 10:57 01/29/17 04:35 01/29/17 04:35 Sodium 140.0 Potassium 4.2 Chloride 103 Carbon Dioxide 29 Anion Gap 8 BUN 22 H Creatinine 0.91 Est GFR ( Amer) > 60 Est GFR (Non-Af Amer) > 60 Glucose 100 Calcium 8.7 01/26/17 05:06 NT-Pro-B Natriuret Pep 305 Impressions: Chest CT 01/25/17 00:00 IMPRESSION: NORMAL CT OF THE CHEST WITH IV CONTRAST. Chest X-Ray 01/25/17 14:17 IMPRESSION: NO ACUTE RADIOGRAPHIC FINDING IN THE CHEST. Assessment & Plan - Diagnosis (1) Acute respiratory failure with hypoxia Is this a current diagnosis for this admission?: Yes Plan: Wean oxygen as tolerated. If patient does not improve in the next 24-48 hours I would recommend evaluating the patient for temporary use of home oxygen. At this point in time the patient likely has pneumonitis versus bronchiolitis. This could be seen on a high-resolution CT scan. It is not necessary to perform any additional imaging studies at this time. Empiric treatment with corticosteroids should be continued. Also, patient should complete a course of oral antibiotics. Continue bronchodilators and Tessalon Perles. (2) Elevated brain natriuretic peptide (BNP) level Is this a current diagnosis for this admission?: Yes Plan: Patient has grade 2 diastolic dysfunction with mild mitral regurgitation. She appears to be euvolemic at this time. (3) Hyperlipidemia Qualifiers: Hyperlipidemia type: mixed hyperlipidemia Qualified Code(s): E78.2 - Mixed hyperlipidemia Is this a current diagnosis for this admission?: Yes Plan: Continue therapy with statin. (4) Hyponatremia Is this a current diagnosis for this admission?: Yes Plan: Resolved. No intervention needed. (5) Hypothyroidism Qualifiers: Hypothyroidism type: acquired Qualified Code(s): E03.9 - Hypothyroidism, unspecified Is this a current diagnosis for this admission?: Yes Plan: Continue Synthroid. (6) Leucocytosis Is this a current diagnosis for this admission?: Yes Plan: The patient's leukocytosis is likely secondary to corticosteroids. Provided she has no evidence of a super infection or secondary infection no further workup is needed at this time. - Time Time Spent with patient: 25-34 minutes - Inpatient Certification Medical Necessity: Need for Nebulizer Therapy and Monitoring of Response, Risk of Complication if Not Cared For in Hospital
[2017-01-29] MEDS ORDERED: METHYLPREDNISOLONE INJ 40 MG/1 ML SDV IV ONE (14:30)
[2017-01-29] MEDS ORDERED: ONDANSETRON HCL INJ/PF 4 MG/2 ML SDV IV PRN (15:30)
[2017-01-29] MEDS: MONTELUKAST SODIUM 10 MG TABLET PO SCH (22:58)
[2017-01-29] MEDS: METHYLPREDNISOLONE INJ 40 MG/1 ML SDV IV SCH (22:58)
[2017-01-29] MEDS: ATORVASTATIN CALCIUM 10 MG TABLET PO SCH (22:58)
[2017-01-30] MEDS: IPRATROPIUM/ALBUTEROL 0.5-2.5 MG/3 ML AMPUL NEB SCH ×4 (01:44→19:31)
[2017-01-30] MEDS: METHYLPREDNISOLONE INJ 40 MG/1 ML SDV IV SCH ×3 (05:32→21:36)
[2017-01-30] MEDS: BENZONATATE 100 MG CAPSULE PO SCH ×3 (05:32→21:28)
[2017-01-30] MEDS: CETIRIZINE 10 MG TABLET PO SCH (09:38)
[2017-01-30] MEDS: LEVOTHYROXINE SODIUM 0.088 MG TABLET PO SCH (09:38)
[2017-01-30] MEDS: LEVOFLOXACIN 750 MG TABLET PO SCH (09:38)
[2017-01-30] MEDS: GUAIFENESIN 600 MG TABLET.SA PO SCH ×2 (09:38→21:28)
[2017-01-30] MEDS: BUDESONIDE/FORMOTEROL 80-4.5 MCG 60 PUFF/6.9 GM MDI IH SCH ×2 (09:39→21:28)
[2017-01-30] MEDS: ENOXAPARIN SODIUM INJ 40 MG/0.4 ML DISP.SYRIN SUBCUT SCH (09:42)
[2017-01-30] MEDS: IPRATROPIUM BROMIDE 0.06% NASAL SPRAY 15 ML NASL SCH ×3 (09:42→17:16)
--- NOTE | 2017-01-30 16:49 | PDOC PROGRESS REPORT ---
Subjective Progress Note for:: 01/30/17 Subjective:: Pt states that her breathing is much improved. Pt states that she is coughing up phlegm. Pt states that she is still wheezing. Physical Exam Vital Signs: Temp Pulse Resp BP Pulse Ox 98.6 F 87 18 122/60 97 01/30/17 15:06 01/30/17 15:06 01/30/17 15:06 01/30/17 15:06 01/30/17 15:06 Pulse Oximeter Continuous Start: 01/25/17 16: 11 Freq: RTQ4 Status: Hold Document 01/30/17 12:00 [employer] (Rec: 01/30/17 14:04 [employer] [email or web address]) Pulse Oximetry Assessment Equipment Usage Equipment Discontinued Continuous SpO2 Machine # 8 Additional RT Notes Other Equipment was not in use. Equipment was removed from bedside. Intake & Output 01/29/17 01/30/17 01/31/17 06:59 06:59 06:59 Intake Total 560 2215 810 Output Total 2 1000 Balance 558 2215 -190 Weight 116.8 kg 116.6 kg General appearance: PRESENT: no acute distress, well-developed, well-nourished Head exam: PRESENT: atraumatic, normocephalic Eye exam: PRESENT: conjunctiva pink, EOMI. ABSENT: scleral icterus Ear exam: PRESENT: normal external ear exam Mouth exam: PRESENT: moist, tongue midline Neck exam: ABSENT: carotid bruit, JVD, lymphadenopathy, thyromegaly Respiratory exam: PRESENT: prolonged expiratory phas, rhonchi, wheezes Cardiovascular exam: PRESENT: RRR. ABSENT: diastolic murmur, rubs, systolic murmur Pulses: PRESENT: normal dorsalis pedis pul Vascular exam: PRESENT: normal capillary refill GI/Abdominal exam: PRESENT: normal bowel sounds, soft. ABSENT: distended, guarding, mass, organolmegaly, rebound, tenderness Rectal exam: PRESENT: deferred Extremities exam: PRESENT: full ROM. ABSENT: calf tenderness, clubbing, pedal edema Neurological exam: PRESENT: alert, awake, oriented to person, oriented to place , oriented to time, oriented to situation, CN II-XII grossly intact. ABSENT: motor sensory deficit Psychiatric exam: PRESENT: appropriate affect, normal mood. ABSENT: homicidal ideation, suicidal ideation Skin exam: PRESENT: abrasion Results Laboratory Results: 01/28/17 10:57 01/29/17 04:35 01/26/17 05:06 NT-Pro-B Natriuret Pep 305 Impressions: Chest CT 01/25/17 00:00 IMPRESSION: NORMAL CT OF THE CHEST WITH IV CONTRAST. Chest X-Ray 01/25/17 14:17 IMPRESSION: NO ACUTE RADIOGRAPHIC FINDING IN THE CHEST. Assessment & Plan - Diagnosis (1) Acute respiratory failure with hypoxia Is this a current diagnosis for this admission?: Yes Plan: Pt improving. Will continue current treatment. (2) Elevated liver function tests Is this a current diagnosis for this admission?: Yes Plan: Secondary to Diastolic Dysfunction: Supportive care. (3) Hyperlipidemia Qualifiers: Hyperlipidemia type: mixed hyperlipidemia Qualified Code(s): E78.2 - Mixed hyperlipidemia Is this a current diagnosis for this admission?: Yes Plan: statin (4) Hyponatremia Is this a current diagnosis for this admission?: Yes Plan: resolved. (5) Hypothyroidism Qualifiers: Hypothyroidism type: acquired Qualified Code(s): E03.9 - Hypothyroidism, unspecified Is this a current diagnosis for this admission?: Yes Plan: Continue Synthroid. (6) Leucocytosis Is this a current diagnosis for this admission?: Yes Plan: Will continue to monitor. - Time Time Spent with patient: 25-34 minutes Anticipated discharge: Home
[2017-01-30] MEDS: MONTELUKAST SODIUM 10 MG TABLET PO SCH (21:28)
[2017-01-30] MEDS: ATORVASTATIN CALCIUM 10 MG TABLET PO SCH (21:28)
[2017-01-30] MEDS: TRAMADOL HCL 50 MG TABLET PO PRN (21:37)
[2017-01-31] MEDS: IPRATROPIUM/ALBUTEROL 0.5-2.5 MG/3 ML AMPUL NEB SCH ×4 (01:45→20:14)
[2017-01-31] MEDS: METHYLPREDNISOLONE INJ 40 MG/1 ML SDV IV SCH ×3 (05:47→21:24)
[2017-01-31] MEDS: BENZONATATE 100 MG CAPSULE PO SCH ×3 (05:47→21:24)
[2017-01-31 06:00] LABS: HEMATOCRIT 36.6 % (36.0-47.0); HEMOGLOBIN 12.5 g/dL (12.0-15.5); HGB HCT DIFFERENCE 0.9; MEAN CORPUSCULAR HEMOGLOBIN 31.6 pg (27.0-33.4); MEAN CORPUSCULAR HGB CONC 34.2 g/dL (32.0-36.0); MEAN CORPUSCULAR VOLUME 92 fl (80-97); RED BLOOD COUNT 3.96 10^6/uL (3.72-5.28); RED CELL DISTRIBUTION WIDTH 14.1 % (11.5-14.0); WHITE BLOOD COUNT 13.1 10^3/uL (4.0-10.5)
[2017-01-31 06:11] LABS: ANION GAP 10 (5-19); BLOOD UREA NITROGEN 21 mg/dL (7-20); CALCIUM 8.4 mg/dL (8.4-10.2); CARBON DIOXIDE 29 mmol/L (22-30); CHLORIDE 102 mmol/L (98-107); CREATININE RESULT 0.84 mg/dL (0.52-1.25); GLUCOSE 171 mg/dL (75-110); MAGNESIUM 2.6 mg/dL (1.6-2.3); POTASSIUM 4.6 mmol/L (3.6-5.0); SODIUM 140.6 mmol/L (137-145)
[2017-01-31 06:46] LABS: BAND NEUTROPHILS % (MANUAL) 4 % (3-5); BASOPHILS % (MANUAL) 0 % (0-2); EOSINOPHILS % (MANUAL) 0 % (0-6); LYMPHOCYTES % (MANUAL) 18 % (13-45); TOTAL CELLS COUNTED 100
[2017-01-31 06:49] LABS: ANISOCYTOSIS SLIGHT; HYPOCHROMASIA SLIGHT; TOXIC GRANULATION SLIGHT
[2017-01-31] MEDS: LEVOTHYROXINE SODIUM 0.088 MG TABLET PO SCH (08:00)
[2017-01-31] MEDS: IPRATROPIUM BROMIDE 0.06% NASAL SPRAY 15 ML NASL SCH ×3 (10:19→17:26)
[2017-01-31] MEDS: BUDESONIDE/FORMOTEROL 80-4.5 MCG 60 PUFF/6.9 GM MDI IH SCH ×2 (10:19→21:24)
[2017-01-31] MEDS: ENOXAPARIN SODIUM INJ 40 MG/0.4 ML DISP.SYRIN SUBCUT SCH (10:19)
[2017-01-31] MEDS: GUAIFENESIN 600 MG TABLET.SA PO SCH ×2 (10:20→21:24)
[2017-01-31] MEDS: LEVOFLOXACIN 750 MG TABLET PO SCH (10:20)
[2017-01-31] MEDS: CETIRIZINE 10 MG TABLET PO SCH (10:20)
--- NOTE | 2017-01-31 15:11 | PDOC PROGRESS REPORT ---
Subjective Progress Note for:: 01/31/17 Subjective:: Patient was seen earlier today. Patient states that she is coughing up phlegm. Patient states that she did ambulate around the hallway yesterday evening with her . Patient states that she does feel pretty still short of breath when she exerts herself. Physical Exam Vital Signs: Temp Pulse Resp BP Pulse Ox 98.2 F 65 16 106/57 L 94 01/31/17 12:09 01/31/17 13:40 01/31/17 13:40 01/31/17 12:09 01/31/17 12:09 Pulse Oximeter Continuous Start: 01/25/17 16: 11 Freq: RTQ4 Status: Hold Document 01/30/17 12:00 [facility] (Rec: 01/30/17 14:04 [facility] [email or web address]) Pulse Oximetry Assessment Equipment Usage Equipment Discontinued Continuous SpO2 Machine # 8 Additional RT Notes Other Equipment was not in use. Equipment was removed from bedside. Intake & Output 01/30/17 01/31/17 02/01/17 06:59 06:59 06:59 Intake Total 2215 1613 Output Total 1000 Balance 2215 613 Weight 116.6 kg 118.1 kg General appearance: PRESENT: mild distress, well-developed, well-nourished Head exam: PRESENT: atraumatic, normocephalic Eye exam: PRESENT: conjunctiva pink, EOMI. ABSENT: scleral icterus Ear exam: PRESENT: normal external ear exam Mouth exam: PRESENT: moist, tongue midline Neck exam: ABSENT: carotid bruit, JVD, lymphadenopathy, thyromegaly Respiratory exam: PRESENT: other - Breath sounds, wheezing heard diffusely, accessory muscles used Cardiovascular exam: PRESENT: RRR. ABSENT: diastolic murmur, rubs, systolic murmur Pulses: PRESENT: normal dorsalis pedis pul Vascular exam: PRESENT: normal capillary refill GI/Abdominal exam: PRESENT: normal bowel sounds, soft. ABSENT: distended, guarding, mass, organolmegaly, rebound, tenderness Rectal exam: PRESENT: deferred Extremities exam: PRESENT: full ROM. ABSENT: calf tenderness, clubbing, pedal edema Neurological exam: PRESENT: alert, awake, oriented to person, oriented to place , oriented to time, oriented to situation, CN II-XII grossly intact. ABSENT: motor sensory deficit Psychiatric exam: PRESENT: appropriate affect, normal mood. ABSENT: homicidal ideation, suicidal ideation Skin exam: PRESENT: dry, intact, warm. ABSENT: cyanosis, rash Results Laboratory Results: 01/31/17 04:42 01/31/17 04:42 01/31/17 01/31/17 04:42 04:42 WBC 13.1 H RBC 3.96 Hgb 12.5 Hct 36.6 MCV 92 MCH 31.6 MCHC 34.2 RDW 14.1 H Plt Count 238 Seg Neutrophils % Not Reportable Lymphocytes % Not Reportable Monocytes % Not Reportable Eosinophils % Not Reportable Basophils % Not Reportable Absolute Neutrophils Not Reportable Absolute Lymphocytes Not Reportable Absolute Monocytes Not Reportable Absolute Eosinophils Not Reportable Absolute Basophils Not Reportable Sodium 140.6 Potassium 4.6 Chloride 102 Carbon Dioxide 29 Anion Gap 10 BUN 21 H Creatinine 0.84 Est GFR ( Amer) > 60 Est GFR (Non-Af Amer) > 60 Glucose 171 H Calcium 8.4 Magnesium 2.6 H 01/26/17 05:06 NT-Pro-B Natriuret Pep 305 Impressions: Chest CT 01/25/17 00:00 IMPRESSION: NORMAL CT OF THE CHEST WITH IV CONTRAST. Chest X-Ray 01/25/17 14:17 IMPRESSION: NO ACUTE RADIOGRAPHIC FINDING IN THE CHEST. Assessment & Plan - Diagnosis (1) Acute respiratory failure with hypoxia Is this a current diagnosis for this admission?: Yes Plan: Pt improving. Will continue current treatment. (2) Hypokalemia Is this a current diagnosis for this admission?: Yes Plan: Resolved. (3) Elevated liver function tests Is this a current diagnosis for this admission?: Yes Plan: Secondary to Diastolic Dysfunction: Supportive care. (4) Hyperlipidemia Qualifiers: Hyperlipidemia type: mixed hyperlipidemia Qualified Code(s): E78.2 - Mixed hyperlipidemia Is this a current diagnosis for this admission?: Yes Plan: statin (5) Hyponatremia Is this a current diagnosis for this admission?: Yes Plan: resolved. (6) Hypothyroidism Qualifiers: Hypothyroidism type: acquired Qualified Code(s): E03.9 - Hypothyroidism, unspecified Is this a current diagnosis for this admission?: Yes Plan: Continue Synthroid. (7) Leucocytosis Is this a current diagnosis for this admission?: Yes Plan: Will continue to monitor. - Time Time Spent with patient: 25-34 minutes - If pt breath has improved enough will discharge home.
[2017-01-31] MEDS: ATORVASTATIN CALCIUM 10 MG TABLET PO SCH (21:24)
[2017-01-31] MEDS: MONTELUKAST SODIUM 10 MG TABLET PO SCH (21:24)
[2017-02-01] MEDS: IPRATROPIUM/ALBUTEROL 0.5-2.5 MG/3 ML AMPUL NEB SCH ×2 (01:50→08:02)
[2017-02-01] MEDS: BENZONATATE 100 MG CAPSULE PO SCH (06:33)
[2017-02-01] MEDS: METHYLPREDNISOLONE INJ 40 MG/1 ML SDV IV SCH (06:33)
[2017-02-01] MEDS: ENOXAPARIN SODIUM INJ 40 MG/0.4 ML DISP.SYRIN SUBCUT SCH (09:46)
[2017-02-01] MEDS: CETIRIZINE 10 MG TABLET PO SCH (09:46)
[2017-02-01] MEDS: BUDESONIDE/FORMOTEROL 80-4.5 MCG 60 PUFF/6.9 GM MDI IH SCH (09:46)
[2017-02-01] MEDS: GUAIFENESIN 600 MG TABLET.SA PO SCH (09:46)
[2017-02-01] MEDS: LEVOFLOXACIN 750 MG TABLET PO SCH (09:46)
[2017-02-01] MEDS: LEVOTHYROXINE SODIUM 0.088 MG TABLET PO SCH (09:46)
[2017-02-01] MEDS: IPRATROPIUM BROMIDE 0.06% NASAL SPRAY 15 ML NASL SCH (09:46)
--- NOTE | 2017-02-01 13:06 | PDOC DISCHARGE SUMMARY ---
General - Admit/Disc Date/PCP Admission Date/Primary Care Provider: 01/25/17 16:11 LUCILA PEÑA MD Discharge Date: 02/01/17 - Discharge Diagnosis (1) Acute respiratory failure with hypoxia Is this a current diagnosis for this admission?: Yes Summary: She presented with acute hypoxic respiratory failure found to be due to H influenza. Patient has CT of chest as well as chest x-ray that did not demonstrate infiltrate. Patient was treated for acute bronchitis with steroids and antibiotics. Patient also received breathing treatments. At time of discharge patient was evaluated for home O2 and was no longer requiring home O2 with exertion. Patient's sats never dropped below 92% on room air. (2) Acute bronchitis Is this a current diagnosis for this admission?: Yes Summary: Levaquin for 4 additional days. Patient will have completed a total of 10 days of antibiotic treatment. (3) Hypokalemia Is this a current diagnosis for this admission?: Yes Summary: resolved (4) Elevated liver function tests Is this a current diagnosis for this admission?: Yes Summary: Most likely secondary to fatty liver disease: Supportive care patient will need to have further evaluation as outpatient. (5) Hyperlipidemia Is this a current diagnosis for this admission?: Yes Summary: Continue statin (6) Hyponatremia Is this a current diagnosis for this admission?: Yes Summary: Resolved (7) Hypothyroidism Is this a current diagnosis for this admission?: Yes Summary: Continue Synthroid (8) Leucocytosis Is this a current diagnosis for this admission?: Yes Summary: Secondary to bronchitis, stress response, and steroids: Resolving - Additional Information Resuscitation Status: Full Code Discharge Diet: Cardiac Discharge Activity: Activity As Tolerated Home Medications: Atorvastatin Calcium [Lipitor 10 mg Tablet] 10 mg PO QHS 01/25/17 Levothyroxine Sodium [Synthroid 0.088 mg Tablet] 0.088 mg PO DAILY 01/25/17 Albuterol Sulfate [Proair HFA] 1 - 2 puff IH Q4 PRN #1 inhaler 02/01/17 Benzonatate [Tessalon Perles 100 mg Capsule] 100 mg PO Q8 #12 capsule 02/01/17 Budesonide/Formoterol Fumarate [Symbicort HFA 80-4.5 mcg Inhaler 6.9 gm] 2 puff IH Q12 #1 inhaler 02/01/17 Guaifenesin [Mucinex Sr 600 mg Tablet.sa] 600 mg PO Q12 tablet.sa 02/01/17 Levofloxacin [Levaquin 750 mg Tablet] 750 mg PO DAILY #4 tablet 02/01/17 Methylprednisolone [Medrol Dosepack (4 mg/Tab) 21 Tab/Dosepak] 4 mg PO ASDIR PRN #21 tab.ds.pk 02/01/17 History of Present Illness Patient complains of: Cough and shortness of breath History of Present Illness: DIONNE PICKETT is a 66 year old female presented to hospital with complaint of difficulty breathing. Patient had been seen by primary doctor who put her on Zithromax. Patient states her breathing continued to worsen. Hospital Course Hospital Course: Patient was admitted to the hospital for acute hypoxic restorative failure cultures from sputum demonstrated Haemophilus influenza. Patient was placed on Levaquin steroids and breathing treatments. Patient's breathing continued to improve throughout hospitalization. Patient was noted to have elevated liver enzymes however they were minimally elevated this most likely represents fatty liver disease recommend outpatient evaluation. At time of admission did require nasal cannula however at time of admission patient was ambulated around hospital and sats never dropped below 92%. Patient did have a 2D echo that was done at our facility which demonstrated mild to moderate diastolic dysfunction. His EF was within normal limits. Physical Exam Vital Signs: Temp Pulse Resp BP Pulse Ox 99.6 F 71 18 135/59 H 94 02/01/17 11:55 02/01/17 11:55 02/01/17 11:55 02/01/17 11:55 02/01/17 11:55 Pulse Oximeter Continuous Start: 01/25/17 16: 11 Freq: RTQ4 Status: Hold Document 01/30/17 12:00 [facility] (Rec: 01/30/17 14:04 [facility] [email or web address]) Pulse Oximetry Assessment Equipment Usage Equipment Discontinued Continuous SpO2 Machine # 8 Additional RT Notes Other Equipment was not in use. Equipment was removed from bedside. Intake & Output 01/31/17 02/01/17 02/02/17 06:59 06:59 06:59 Intake Total 1613 1660 Output Total 1000 800 Balance 613 860 Weight 118.1 kg 118.1 kg General appearance: PRESENT: no acute distress, well-developed, well-nourished Head exam: PRESENT: atraumatic, normocephalic Eye exam: PRESENT: conjunctiva pink, EOMI. ABSENT: scleral icterus Ear exam: PRESENT: normal external ear exam Mouth exam: PRESENT: moist, tongue midline Neck exam: ABSENT: carotid bruit, JVD, lymphadenopathy, thyromegaly Respiratory exam: PRESENT: other - Course breath sounds with scant wheezing and slight prolonged expiratory phase however much improved from day prior Cardiovascular exam: PRESENT: RRR. ABSENT: diastolic murmur, rubs, systolic murmur Pulses: PRESENT: normal dorsalis pedis pul Vascular exam: PRESENT: normal capillary refill GI/Abdominal exam: PRESENT: normal bowel sounds, soft. ABSENT: distended, guarding, mass, organolmegaly, rebound, tenderness Rectal exam: PRESENT: deferred Extremities exam: PRESENT: full ROM. ABSENT: calf tenderness, clubbing, pedal edema Neurological exam: PRESENT: alert, awake, oriented to person, oriented to place , oriented to time, oriented to situation, CN II-XII grossly intact. ABSENT: motor sensory deficit Psychiatric exam: PRESENT: appropriate affect, normal mood. ABSENT: homicidal ideation, suicidal ideation Skin exam: PRESENT: dry, intact, warm. ABSENT: cyanosis, rash Results Laboratory Results: 01/31/17 04:42 01/31/17 04:42 01/26/17 05:06 NT-Pro-B Natriuret Pep 305 Impressions: Chest CT 01/25/17 00:00 IMPRESSION: NORMAL CT OF THE CHEST WITH IV CONTRAST. Chest X-Ray 01/25/17 14:17 IMPRESSION: NO ACUTE RADIOGRAPHIC FINDING IN THE CHEST. Plan Time Spent: Greater than 30 Minutes - 36 minutes time required to discharge patient
[2017-02-01 13:09] VITALS: BP 110/67
== END 2017-02-01 13:30 | disposition home or self-care (01) | DRG 202 ==
LOC: ER 13:37 → UNDOADMIN 15:52 → EH 15:52 → 4N 19:10
PROVIDERS: ADMIT Family Medicine; ATTEND Family Medicine
DX: J20.1 Acute bronchitis due to Hemophilus influenzae (principal); J96.01 Acute respiratory failure with hypoxia; E87.1 Hypo-osmolality and hyponatremia; Z68.41 Body mass index [BMI] 40.0-44.9, adult; I50.9 Heart failure, unspecified; I11.0 Hypertensive heart disease with heart failure; E03.9 Hypothyroidism, unspecified; E78.5 Hyperlipidemia, unspecified; R53.83 Other fatigue; E66.01 Morbid (severe) obesity due to excess calories; Z87.891 Personal history of nicotine dependence
CPT/HCPCS: 36415; 71010; 71260; 80048; 80053; 80076; 81001; 82550; 82803; 83036; 83605; 83735; 83880; 84484; 85025; 87040; 87070; 87077; 87205; 93005; 93010; 93306; 94762; 99285; J1650; J1956; J2405; J2543; J2920; J3370; J3490; J7512; J7620

== ENCOUNTER → 2019-08-27 | Outpatient (CLI) | payer MEDICARE, OTHER ==
--- NOTE | 2019-08-27 14:36 | RADIOLOGY REPORT (SQ) ---
EXAM DESCRIPTION: CHEST PA/LATERAL IMAGES COMPLETED DATE/TIME: 08/27/2019 1:31 pm REASON FOR STUDY: NEW ONSET SOB COMPARISON: 01/25/2017 EXAM PARAMETERS: NUMBER OF VIEWS: two views TECHNIQUE: Digital Frontal and Lateral radiographic views of the chest acquired. RADIATION DOSE: NA LIMITATIONS: none FINDINGS: LUNGS AND PLEURA: Small infrahilar nodule best seen on the lateral image measures 1.3 cm. This finding may correlate to the CT chest examination dated 01/25/2017. No acute pulmonary consoli dation. No pneumothorax or pleural effusion. MEDIASTINUM AND HILAR STRUCTURES: No masses or contour abnormalities. HEART AND VASCULAR STRUCTURES: Heart normal size. No evidence for failure. BONES: No acute findings. HARDWARE: None in the chest. OTHER: No other significant finding. IMPRESSION: 1. No acute pulmonary consolidation. 2. An infrahilar nodule best noted on the lateral image, may correlate to prior CT chest study dated 01/25/2017. A follow-up CT chest to document for stability suggested. TECHNICAL DOCUMENTATION: JOB ID: [id number] 2010 [employer]- All Rights Reserved Reading location - IP/workstation name: [email or web address]
--- NOTE | 2019-08-27 16:20 | RADIOLOGY REPORT (SQ) ---
EXAM DESCRIPTION: LUMBAR SPINE COMPLETE IMAGES COMPLETED DATE/TIME: 08/27/2019 3:55 pm REASON FOR STUDY: LBP R06.02 SHORTNESS OF BREATH N18.9 CHRONIC KIDNEY DISEASE, UNSPECIFIED N18.3 CHRONIC KIDNEY DISEASE, STAGE 3 (MODERATE) COMPARISON: None. NUMBER OF VIEWS: Five views including obliques. TECHNIQUE: AP, lateral, oblique, and sacral radiographic images acquired of the lumbar spine. LIMITATIONS: None. FINDINGS: MINERALIZATION: Normal. SEGMENTATION: Normal. No transitional anatomy. ALIGNMENT: Normal. VERTEBRAE: Maintained height. No fracture or worrisome bone lesion. DISCS: Multilevel disc space narrowing with osteophytes. POSTERIOR ELEMENTS: Pedicles and facets are intact. No pars defect or posterior arch defects. Facet arthropathy is present. HARDWARE: None in the spine. PARASPINAL SOFT TISSUES: Calcified aorta. PELVIS: Intact as visualized. No fractures or worrisome bone lesions. SI joints intact. OTHER: No other significant finding. IMPRESSION: SPONDYLOSIS WITHOUT BONE LESION OR FRACTURE. TECHNICAL DOCUMENTATION: JOB ID: [id number] 2010 [employer]- All Rights Reserved Reading location - IP/workstation name: [email or web address]
[2019-08-28 08:37] LABS: CREATININE URINE 52.9 mg/dL (Not Estab.); MICROALBUMIN URINE <3.0 ug/mL (Not Estab.)
== END ==
LOC: OD 13:02
PROVIDERS: ATTEND Obstetrics & Gynecology
DX: M54.5 Low back pain (principal); M47.816 Spondylosis without myelopathy or radiculopathy, lumbar region; N18.3 Chronic kidney disease, stage 3 (moderate); R06.02 Shortness of breath; R91.1 Solitary pulmonary nodule
CPT/HCPCS: 71046; 72110; 82043; 82570

== ENCOUNTER → 2019-09-01 | Outpatient (CLI) | payer MEDICARE, OTHER ==
--- NOTE | 2019-09-01 13:49 | RADIOLOGY REPORT (SQ) ---
EXAM DESCRIPTION: CT CHEST WITHOUT IMAGES COMPLETED DATE/TIME: 09/01/2019 1:13 pm REASON FOR STUDY: R91.1 SOLITARY PULMONARY NODULE R91.1 SOLITARY PULMONARY NODULE COMPARISON: None. TECHNIQUE: CT scan performed of the chest without intravenous contrast. Images reviewed with lung, soft tissue and bone windows. Reconstructed coronal and sagittal MPR images reviewed. All images st ored on PACS. All CT scanners at this facility use dose modulation, iterative reconstruction, and/or weight based d osing when appropriate to reduce radiation dose to as low as reasonably achievable (ALARA). [facility]: Dose Right [facility]: CareDose [facility]: Dose Right [facility]: Teradose 4D [facility]: [employer] RADIATION DOSE: CT Rad equipment meets quality standard of care and radiation dose reduction techniq ues were employed. CTDIvol: 16.6 mGy. DLP: 612 mGy-cm. LIMITATIONS: No technical limitations. FINDINGS: LUNGS AND PLEURA: The trachea and main bronchi are patent. The subpleural reticular opaci ties in the right lower lobe are unchanged. The solid noncalcified 5 mm nodule in the lingula (image 59 of series 4) is also unchanged. There is no acute consolidation, ground-glass opacification, ple ural effusion or pneumothorax. HILAR AND MEDIASTINAL STRUCTURES: No adenopathy or mass. HEART AND VASCULAR STRUCTURES: Mild atherosclerotic calcification of the thoracic aorta without aneur ysmal dilatation. There is no cardiomegaly or pericardial effusion. UPPER ABDOMEN: The low-attenuation of the liver is consistent with hepatic steatosis. THYROID AND OTHER SOFT TISSUES: No adenopathy or mass. BONES: No fracture or osseous lesion HARDWARE: None in the chest. OTHER: No other findings. IMPRESSION: No acute cardiopulmonary process. TECHNICAL DOCUMENTATION: JOB ID: [id number] Quality ID # [id number]: Final reports with documentation of one or more dose reduction techniques (e.g., Au tomated exposure control, adjustment of the mA and/or kV according to patient size, use of iterative reconstruction technique) 2010 [employer]- All Rights Reserved Reading location - IP/workstation name: [email or web address]-
== END ==
LOC: RAD 12:43
PROVIDERS: ATTEND Obstetrics & Gynecology
DX: R91.1 Solitary pulmonary nodule (principal)
CPT/HCPCS: 71250